=== PATIENT | male | born 1940 | race Two or more races ===

== ENCOUNTER 2024-09-13 21:40 | Emergency (ER) | payer MEDICAID ==
[~2024-09-13] VITALS: Ht 172.7 cm; Wt 63.6 kg
[~2024-09-13 21:40] MED LIST: CEPH-558 PO
[2024-09-13 21:45] VITALS: BP 148/89; PULSE 86; RESP 16; TEMP 98.2; O2SAT 98
== END 2024-09-14 01:43 | disposition home or self-care (01) ==
LOC: EMS 21:40
DX: R31.9 Hematuria, unspecified (principal); T83.098A Other mechanical complication of other urinary catheter, initial encounter; Y84.6 Urinary catheterization as the cause of abnormal reaction of the patient, or of later complication, without mention of misadventure at the time of the procedure
CPT/HCPCS: 99281; Z7502

== ENCOUNTER 2024-09-23 14:41 | Emergency (ER) | payer MEDICARE, MEDICAID ==
[~2024-09-23] VITALS: Ht 167.6 cm; Wt 63.6 kg
[2024-09-23 14:47] VITALS: TEMP 98.5
[2024-09-23 15:27] LABS: BASOPHILS % (AUTO) 1.2 % (0.0-2.0); EOSINOPHILS % (AUTO) 1.3 % (1.0-6.0); HEMATOCRIT 40.6 % (41-53); HEMOGLOBIN 12.9 g/dL (13.5-17.5); LYMPHOCYTES # (AUTO) 2.2 K/uL (1.0-4.8); LYMPHOCYTES % (AUTO) 24.8 % (22.0-44.0); MEAN CORPUSCULAR HGB CONC 31.8 G/dL (31.0-37.0); MEAN CORPUSCULAR VOLUME 85 fL (80-100); MONOCYTES # (AUTO) 1.1 K/uL (0.1-1.0); MONOCYTES % (AUTO) 12.1 % (2.0-9.0); NEUTROPHILS # (AUTO) 5.3 K/uL (1.8-7.7); NEUTROPHILS % (AUTO) 60.6 % (40.0-70.0); PLATELET COUNT (AUTO) 259 K/uL (150-450); RED BLOOD CELL COUNT(AUTO) 4.77 MIL/uL (4.50-5.90); RED CELL DISTRIBUTION WIDTH 16.8 % (11.5-14.5); WHITE BLOOD COUNT (AUTO) 8.8 K/uL (4.5-11.0)
[2024-09-23 15:29] LABS: APPEARANCE,URINE TURBID (CLEAR); BILIRUBIN,URINE NEGATIVE (NEGATIVE); COLOR,URINE YELLOW (YELLOW); GLUCOSE, URINE (UA) NEGATIVE (NEGATIVE); KETONES,URINE NEGATIVE (NEGATIVE); LEUKOCYTE ESTERASE ,URINE LARGE (NEGATIVE); NITRATE,URINE POSITIVE (NEGATIVE); OCCULT BLOOD,URINE NEGATIVE (NEGATIVE); PH,URINE 8.5 (5.0-8.0); PROTEIN,URINE 100-200,SEE CONFIRM mg/dL (NEGATIVE); SPECIFIC GRAVITIY, URINE 1.014 (1.003-1.030); UROBILINOGEN,URINE <=1.0 mg/dL (<=1.0)
[2024-09-23 15:36] LABS: ANION GAP 10 mmol/L (8-16); CALCIUM, TOTAL 8.9 mg/dL (8.8-10.5); CARBON DIOXIDE 26 mmol/L (22-29); CHLORIDE 103 mmol/L (98-107); CREATININE 0.59 mg/dL (0.60-1.30); GLOMERULAR FILTR. RATE CALC > 60 mL/min (>60); GLUCOSE,RANDOM 109 mg/dL (70-110); SODIUM SERUM 139 mmol/L (136-145); UREA NITROGEN, BLOOD 18 mg/dL (7-18)
[2024-09-23 15:40] LABS: ALBUMIN 2.8 g/dL (3.4-5.0); BILIRUBIN,DIRECT 0.8 mg/dL (0.00-0.20); BILIRUBIN,TOTAL 1.8 mg/dL (0.1-1.0); TOTAL PROTEIN, SERUM 6.4 g/dL (6.4-8.2)
[2024-09-23] MEDS ORDERED: CEFP200T12 PO (15:53)
[2024-09-23 15:55] VITALS: BP 129/81; PULSE 77; RESP 17; O2SAT 98
[2024-09-23 15:56] LABS: SULFOSALICYLIC ACID,URINE 1+ (Negative)
[2024-09-23 15:57] LABS: AMORPHOUS SEDIMENT,UR Moderate /LPF (None Seen); BACTERIA,URINE Few /HPF (None Seen); RBC,URINE None Seen /HPF (0-2); SQUAMOUS EPITHELIAL CELL,UR None Seen /LPF (None Seen); URIC ACID CRYSTALS,URINE Few /LPF (None Seen)
[2024-09-23] MEDS: CEFPODOXIME PROXETIL 200 MG TABLET PO ONE (16:03)
== END 2024-09-23 16:11 | disposition home or self-care (01) ==
LOC: EMS 14:52
DX: T83.098A Other mechanical complication of other urinary catheter, initial encounter (principal); Y84.6 Urinary catheterization as the cause of abnormal reaction of the patient, or of later complication, without mention of misadventure at the time of the procedure
CPT/HCPCS: 80048; 80076; 81001; 81002; 85025; 87077; 87086; 87186; 99284